=== PATIENT | female | born 1995 | race Two or more races ===

== ENCOUNTER 2023-12-01 00:18 | Emergency (ER) | payer OTHER, MEDICAID, SELFPAY ==
--- NOTE | ~2023-12-01 | XR_ITS ---
EXAMINATION: XR SHOULDER, RIGHT CLINICAL INFORMATION: Right shoulder injury. Pain. COMPARISON: None available. TECHNIQUE: AP external rotation, Grashey, scapular Y, and axillary views of the right shoulder. FINDINGS: The bones and soft tissues are normal. No fracture. Glenohumeral and acromioclavicular alignment is anatomic with normal joint space. No abnormal soft tissue calcifications. XR/XR shoulder RT min 2V IMPRESSION: No significant abnormality identified. Electronically signed by: Sukhjinder Acevedo MD 12/01/2023 03:43 AM EDT
[2023-12-01 00:44] VITALS: BP 110/69; PULSE 82; RESP 16; TEMP 36.6; O2SAT 96; BMI 27.7
[2023-12-01] MEDS: Ibuprofen 600 MG TABLET PO (03:56)
[2023-12-01 04:02] VITALS: BP 108/67; PULSE 72; RESP 16; TEMP 36.6; O2SAT 98
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
[2023-12-01 05:00] VITALS: BP 108/67; PULSE 72; RESP 16; TEMP 36.6; O2SAT 98
--- NOTE | 2023-12-01 05:31 | PC.NURSE ---
Pt refused Ibuprofen.
== END 2023-12-01 05:20 | disposition home or self-care (01) ==
PROVIDERS: Emergency Provider Internal Medicine; PCP Nurse Practitioner Family
DX: S09.90XA Unspecified injury of head, initial encounter (principal); M25.511 Pain in right shoulder; V43.62XA Car passenger injured in collision with other type car in traffic accident, initial encounter; Y93.89 Activity, other specified; Y92.488 Other paved roadways as the place of occurrence of the external cause; Y99.8 Other external cause status
CPT/HCPCS: 73030; 99283